=== PATIENT | female | born 1945 | race Asian ===

== ENCOUNTER 2017-01-19 05:21 | Emergency (ER) | payer SELFPAY ==
[~2017-01-19] VITALS: Ht 157.5 cm; Wt 54.4 kg
[2017-01-19] MEDS ORDERED: cloNIDine HCL 0.1 MG TAB PO ONE (05:30)
[2017-01-19 05:32] VITALS: BP 174/84
[2017-01-19 06:09] LABS: Urine RBC None Seen /hpf (0 - 4)
[2017-01-19 06:21] LABS: Urine Bilirubin Negative (Negative); Urine Blood Negative /uL (Negative); Urine Color Colorless (Yellow); Urine Glucose Normal (Normal); Urine Ketone Negative (Negative); Urine Nitrite Negative (Negative); Urine Urobilinogen Normal (Negative)
== END 2017-01-19 08:11 | disposition home or self-care (01) ==
LOC: ER 05:21 → EDBD 05:21 → ER 08:11
DX: I10 Essential (primary) hypertension (principal)
CPT/HCPCS: 81001; 94761